=== PATIENT | female | born 1985 | race Caucasian/White ===

== ENCOUNTER 2019-05-08 22:43 | Inpatient (IN) ==
[2019-05-08] MEDS ORDERED: HYDROmorphone 2 MG/1 ML VIAL IV STA (23:39)
[2019-05-08] MEDS ORDERED: ONDANSETRON 4 MG/2 ML VIAL IV STA (23:39)
[2019-05-08] MEDS ORDERED: PANTOPRAZOLE 40 MG VIAL IV STA (23:39)
[2019-05-08] MEDS ORDERED: SODIUM CHLORIDE 0.9% 1,000 ML IV STA (23:39)
[2019-05-09 00:55] LABS: Basophils % 0.2 % (0.0-0.8); Hematocrit 40.2 VOL% (35.7-47.0); Hemoglobin 13.8 GM/DL (12.0-16.0); Immature Granulocytes % 0.2 %; Immature Granulocytes Absolute 0.02 #; Lymphocytes # 1.6 10*3/uL (1.4-4.0); Lymphocytes % 16.1 % (21.3-54.2); Mean Corpuscular HGB Conc 34.3 GM/DL (32-36); Mean Corpuscular Volume 90.5 FL (87-102); Monocytes % 3.8 % (1.7-12.7); Neutrophils % 79.7 % (38.7-73.9); Platelet Count 215 T/CUMM (130-400); Red Blood Count 4.44 MC/CUMM (3.8-5.5); White Blood Count 9.8 T/CUMM (4-12)
[2019-05-09 01:27] LABS: Alanine Aminotransferase 42 U/L (13-56); Albumin 3.9 G/DL (3.4-5.0); Alkaline Phosphatase 66 U/L (45-117); Amylase 46 U/L (25-115); Aspartate Amino Transferase 21 U/L (0-37); Blood Urea Nitrogen 19 MG/DL (7-18); Calcium 8.6 MG/DL (8.5-10.1); Estimated Glom Filtration Rate 107 ML/MIN; Glucose 91 MG/DL (74-106); Osmolality,Calculated 282.3 MOS/KG (273-304); Total Protein 6.9 G/DL (6.4-8.3); Troponin I 0.017 NG/ML (0.00-0.045)
[2019-05-09] MEDS ORDERED: ACETAMINOPHEN 325 MG TABLET PO PRN (02:33)
[2019-05-09 02:38] LABS: Lymphocytes 12 % (20-55); Platelet Estimate Normal; Segmented Neutrophils 87 % (50-85); Total Cells Counted 100
[2019-05-09 03:50] LABS: Basophils % 0.3 % (0.0-0.8); Eosinophils % 0.3 % (0.00-10.9); Hematocrit 37.2 VOL% (35.7-47.0); Hemoglobin 12.6 GM/DL (12.0-16.0); Immature Granulocytes % 0.1 %; Immature Granulocytes Absolute 0.01 #; Lymphocytes # 2.4 10*3/uL (1.4-4.0); Mean Corpuscular HGB Conc 33.9 GM/DL (32-36); Mean Corpuscular Volume 91.6 FL (87-102); Monocytes % 5.7 % (1.7-12.7); Neutrophils % 62.6 % (38.7-73.9); Platelet Count 207 T/CUMM (130-400); Red Blood Count 4.06 MC/CUMM (3.8-5.5); White Blood Count 7.6 T/CUMM (4-12)
[2019-05-09] MEDS: DEXTROSE 5% NACL 0.9% 1,000 ML IV SCH ×3 (04:00→20:01)
[2019-05-09 04:28] LABS: Osmolality,Calculated 280.3 MOS/KG (273-304)
[2019-05-09 05:02] LABS: Apearance,Urine Slightly Hazy (Clear); Bacteria,Urine Occasional /HPF (Few); Bilirubin,Urine Negative (Negative); Blood, Urine Negative (Negative); Calcium Oxalate Crystals,Urine Occasional /HPF (Few); Glucose,Urine (UA) Negative (Negative); Ketones,Urine 80 mg/dL (Negative); Mucus,Urine Many /LPF (Occasional); Nitrite,Urine Negative (Negative); Protein,Urine 30 MG/DL; RBC,Urine 6 /HPF (0-4); Squamous Epithelial Cell,Urine Occasional /HPF (0-10); Urine Color Yellow (Yellow); Urine Specific Gravity 1.027 (1.001-1.035); Urine Urobilinogen < 2.0 EU/DL (0.2-1.0); WBC,Urine 6 /HPF (0-6)
[2019-05-09] MEDS: ONDANSETRON 4 MG/2 ML VIAL IV PRN ×2 (08:23→17:46)
[2019-05-09] MEDS: ENOXAPARIN 40 MG/0.4 ML SYRINGE SUBCUT SCH (10:05)
[2019-05-09] MEDS: PANTOPRAZOLE 40 MG VIAL IV SCH ×2 (10:05→20:54)
[2019-05-09] MEDS ORDERED: ALUM/MAG/SIMETH/LIDO VISC 1:1 30 ML BOTTLE PO ONE (10:25)
[2019-05-09] MEDS: SUCRALFATE 1 GM/10 ML UDCUP PO SCH ×3 (15:08→20:56)
[2019-05-10] MEDS: DEXTROSE 5% NACL 0.9% 1,000 ML IV SCH ×2 (03:50→10:38)
[2019-05-10 04:33] LABS: Barbiturates Screen,Urine Negative (Negative); Benzodiazepines Screen,Urine Negative (Negative); Cannabinoid Screen,Urine Positive (Negative); Opiate Screen,Urine Negative (Negative); Phencyclidine Screen,Urine Negative (Negative)
[2019-05-10 04:55] LABS: Basophils % 0.6 % (0.0-0.8); Eosinophils # 0.1 10*3/uL (0.0-0.87); Hematocrit 36.1 VOL% (35.7-47.0); Hemoglobin 11.7 GM/DL (12.0-16.0); Immature Granulocytes % 0.2 %; Immature Granulocytes Absolute 0.01 #; Lymphocytes # 2.8 10*3/uL (1.4-4.0); Lymphocytes % 56.9 % (21.3-54.2); Mean Corpuscular HGB Conc 32.4 GM/DL (32-36); Mean Corpuscular Volume 94.5 FL (87-102); Mean Platelet Volume 11.4 FL (9.6-12.0); Monocytes % 6.4 % (1.7-12.7); Neutrophils % 34.9 % (38.7-73.9); Platelet Count 182 T/CUMM (130-400); Red Blood Count 3.82 MC/CUMM (3.8-5.5); Red Cell Distribution Width 12.3 % (9.3-17.3); White Blood Count 4.8 T/CUMM (4-12)
[2019-05-10 05:20] LABS: Osmolality,Calculated 280.1 MOS/KG (273-304)
[2019-05-10 05:23] LABS: Lymphocytes 58 % (20-55); Segmented Neutrophils 38 % (50-85); Total Cells Counted 100
[2019-05-10 05:24] LABS: Platelet Estimate Normal
[2019-05-10] MEDS ORDERED: LACTATED RINGERS 1,000 ML IV SCH (08:00)
[2019-05-10] MEDS ORDERED: MAGNESIUM SULF RIDER 2 GM in PREMIX 1 EACH IV ONE (08:30)
[2019-05-10] MEDS ORDERED: POLYETHYLENE GLYCOL POWDER 17 GM PACK PO SCH (10:25)
[2019-05-10] MEDS: PANTOPRAZOLE 40 MG VIAL IV SCH (10:37)
[2019-05-10] MEDS: ENOXAPARIN 40 MG/0.4 ML SYRINGE SUBCUT SCH (10:38)
[2019-05-10] MEDS: SUCRALFATE 1 GM/10 ML UDCUP PO SCH ×2 (10:39→12:09)
[2019-05-10] MEDS ORDERED: LIDOCAINE 2% 5 ML VIAL ONE (12:00)
[2019-05-10] MEDS ORDERED: PHENYLEPHRINE 1 MG/10 ML SYRINGE IV ONE (12:00)
[2019-05-10] MEDS ORDERED: PROPOFOL 200 MG/20 ML VIAL IV ONE (12:00)
[2019-05-10 16:43] VITALS: BP 119/76
== END 2019-05-10 16:45 | disposition home or self-care (01) | DRG 392 ==
LOC: EDBD → EDUNIT# → N.ED 22:43 → N.EDINP 05-09 02:33 → SUATTDRO 05-09 02:33 → N.5E 05-09 03:02
PROVIDERS: ADMIT Internal Medicine; ATTEND Family Medicine